=== PATIENT | female | born 1955 | race Caucasian/White ===

== ENCOUNTER → 2021-10-09 | Outpatient (CLI) | payer OTHER ==
[~2021-10-09] MED LIST: ATORVASTATIN CA20 MG PO; MELATONIN10 M3 PO; OSTEO BI-FLEX1 EAC2 PO; SUPER B MAXI C0.4 MG PO; VITAMIN C500 M2 PO
[2021-10-09 09:14] LABS: HEMATOCRIT 42.7 % (37.0-47.0); HEMOGLOBIN 14.2 gm/dL (12.0-15.0); MCH 31.4 pg (26.0-34.0); MCHC 33.3 g/dL (28.0-37.0); MCV 94.3 fL (80.0-100.0); RBC 4.53 mil/uL (4.20-5.00); RDW 12.8 % (10.5-14.5); WBC 5.4 thou/uL (4.0-11.0)
[2021-10-09 09:27] LABS: ALBUMIN 4.2 g/dL (3.4-5.0); CALCIUM 9.3 mg/dL (8.5-10.1); CREATININE 0.8 mg/dL (0.6-1.0); POTASSIUM 4.8 mmol/L (3.5-5.1)
[2021-10-09 09:28] LABS: INR 0.93; PROTIME 10.2 Seconds (10.5-12.1)
[2021-10-09 09:46] LABS: URINE BILIRUBIN NEGATIVE (Negative); URINE BLOOD NEGATIVE (Negative); URINE CLARITY CLEAR; URINE COLOR YELLOW; URINE GLUCOSE-RANDOM* NEGATIVE (Negative); URINE KETONES NEGATIVE (Negative); URINE LEUKOCYTES-REFLEX TRACE (Negative); URINE NITRITE-REFLEX NEGATIVE (Negative); URINE PROTEIN (DIPSTICK) NEGATIVE (Negative); URINE SPECIFIC GRAVITY 1.015 (1.005-1.035); URINE UROBILINOGEN 0.2 E.U./dl (0.2-1.0)
== END | disposition home or self-care (01) ==
LOC: PAC 08:23
PROVIDERS: ATTEND Orthopaedic Surgery
DX: Z01.818 Encounter for other preprocedural examination (principal); M17.11 Unilateral primary osteoarthritis, right knee

== ENCOUNTER → 2021-10-16 | Outpatient (CLI) | payer OTHER | LOC: LAB 11:58 | PROVIDERS: ATTEND Student in an Organized Health Care Education/Training Program | DX: Z01.812 Encounter for preprocedural laboratory examination (principal); Z20.822 Contact with and (suspected) exposure to COVID-19 ==

== ENCOUNTER 2021-10-21 06:05 | Observation (INO) | payer OTHER ==
[~2021-10-21] VITALS: Ht 165.1 cm; Wt 75.7 kg
[2021-10-21 06:58] VITALS: BP 134/68
[2021-10-21 16:36] LABS: APTT 23.2 Seconds (24.5-32.8); INR 0.99; PROTIME 10.8 Seconds (10.5-12.1)
[2021-10-21 19:39] VITALS: BP 129/73
[2021-10-21 20:20] VITALS: BP 129/73
[2021-10-22 00:35] VITALS: BP 118/58
--- NOTE | 2021-10-22 02:16 | NUR ---
PT IS POST OP DAY 1 FROM RIGHT TOTAL KNEE REPLACEMENT. PT IS A&OX4 AND ABLE TO COMMUNICATE WANTS AND NEEDS TO STAFF. SHE CONTINUES ON 4L/NC AND HAS MAINTAINED O2 SATS >95%. HEMOVAC AND ARELY IN PLACE TO RIGHT KNEE, WELL ICE PACK NEEDED. WILL CONINUE TO OBSERVE FOR CHANGES
[2021-10-22 05:36] VITALS: BP 108/46
[2021-10-22 05:51] LABS: ABSOLUTE NEUTROPHILS 8.3 thou/uL (1.4-8.2); BASOPHILS 0.1 % (0.0-2.0); HEMATOCRIT 31.2 % (37.0-47.0); HEMOGLOBIN 10.4 gm/dL (12.0-15.0); LYMPHOCYTES 10.7 % (24.0-44.0); MCH 31.5 pg (26.0-34.0); MCHC 33.2 g/dL (28.0-37.0); MCV 94.7 fL (80.0-100.0); MONOCYTES 8.4 % (1.0-8.0); PLATELET COUNT 165 thou/uL (150-400); POLYS 80.8 % (36.0-66.0); RBC 3.29 mil/uL (4.20-5.00); RDW 12.6 % (10.5-14.5); WBC 10.2 thou/uL (4.0-11.0)
[2021-10-22 06:09] LABS: CALCIUM 8.5 mg/dL (8.5-10.1); CREATININE 0.7 mg/dL (0.6-1.0); MAGNESIUM 2.2 mg/dL (1.8-2.4); POTASSIUM 4.4 mmol/L (3.5-5.1)
[2021-10-22 08:13] VITALS: BP 100/50
--- NOTE | 2021-10-22 08:59 | NUR ---
Assumed care of pt at 0700. Pt a&ox4. Dressing c/d/i. Serena controlled with prn pain medications. Up x1 assist. Patient waiting to work with physical therapy this am. Family at bedside. Call light within reach. Will continue to monitor.
--- NOTE | 2021-10-22 11:10 | NUR ---
S/P TKR. 66 years old, she lives with her franki. She independent. No dme, no hh or rehab in the past. Will need fww, provider plus will deliver fww prior to dc. Anticipate dc tomorrow per canelo. [facility] therapy in [facility] set up already.
--- NOTE | 2021-10-22 12:03 | O ---
[facility] [place] [address] OPERATIVE REPORT Name: ZAKI WHALEY Room #: 439-P [facility] M.RFelipe#: [id number] Admission: 10/21/21 Attend Phys: Cricket Solitario MD Discharge: Date of : 55 Report #: [id number] THIS REPORT FOR: cc: FAM - Family physician unknown FAM - Family physician unknown Cricket Solitario MD ~ DATE OF SERVICE: 10/21/2021 PREOPERATIVE DIAGNOSIS: Degenerative osteoarthritis, right knee. POSTOPERATIVE DIAGNOSIS: Degenerative osteoarthritis, right knee. PROCEDURE: Right total knee arthroplasty. SURGEON: Cricket Solitario MD INDICATIONS: This slender, fit and active 66-year-old female complains of progressive right knee pain. Clinical exam and x-rays confirm moderately severe degenerative arthritis involving all 3 compartments. We have discussed treatment options. Conservative measures have been ineffective. She has elected to go ahead with total knee replacement. DESCRIPTION OF PROCEDURE: The patient was taken to the operating room where she was placed under general anesthesia. A femoral nerve block was also applied. The right lower extremity was meticulously prepped and draped. A thigh tourniquet was applied and inflated to 300 mmHg. An anterior longitudinal skin incision was made and carried through the medial retinaculum. The patella was reflected laterally. Marked degenerative change in all 3 compartments was noted. The Castro and Nephew knee system was utilized. Intramedullary guides were used on both the femur and the tibia. The femur seemed to be best suited for a size 5 femoral component. The tibia was best suited for a size 4 tibial component. Sufficient bone was resected to correct the mild preoperative deformity and mild flexion contracture. A 9 mm polyethylene insert trial was tested. This resulted in full knee extension and flexion beyond 130 with satisfactory stability on varus and valgus stress. The patella surface was resected and a 32 mm patellar button fit nicely. Appropriate anchor holes were created. The trial implant was applied and the patella seemed to track nicely and appeared to be stable. The trial components were removed. The intramedullary canal was blocked with a bone block on both the femoral and tibial sides. The surfaces were thoroughly irrigated and dried. Methyl methacrylate cement was mixed and injected into the porous surface of the proximal tibia. The Castro and Nephew size 4 Maria Luisa II right nonporous tibial base plate was then applied. This was impacted into position and seated nicely and appeared to be secure. A 9 mm cruciate retaining Legion polyethylene component was then snapped into place. It seated nicely and [facility] [address] [place] [address] OPERATIVE REPORT Name: ZAKI WHALEY Room #: 439-P [facility] M.R.#: [id number] Admission: 10/21/21 Attend Phys: Cricket Solitario MD Discharge: Date of : 55 Report #: [id number] appeared to be secure. The Castro and Nephew size 5 right cruciate retaining Legion porous femoral component was then impacted on the distal femur. A small amount of cement was used at the anchor holes as the bone is somewhat osteopenic in that area. This component also seemed to seat nicely and appeared to be secure. A 32 mm Maria Luisa II patellar button was cemented into place using appropriate anchor holes. It was secured with a patellar clamp. All excess cement was removed around this margin. Once the cement had firmed, the clamp was removed and the knee was tested. Alignment, range of motion and stability appeared to be satisfactory. The patella tracked nicely and appeared to be stable. At this point, a single Hemovac was left in the wound exiting through a separate stab incision. The fascia was closed with multiple #1 Vicryl sutures. The tourniquet was deflated after a total tourniquet time of 59 minutes. Good hemostasis was noted. The subcutaneous tissues were closed with 0 Monocryl. The skin was closed with skin gregory. A sterile dressing was applied. The patient was awakened and returned to recovery room in good condition. <ELECTRONICALLY SIGNED> By: Cricket Solitario MD 10/22/21 1203 [id number] Cricket Solitario MD /gabriel
[2021-10-22 19:57] VITALS: BP 139/56
--- NOTE | 2021-10-23 03:35 | NUR ---
PT IS A/O X4 AND IS UP WITH ASSISTANCE USING WALKER AND GB. ROOM AIR. VSS AFEBRILE. C/O PAIN. PRN PAIN MEDICATION GIVEN DIRECTED. FALL PRECUATIONS IN PLACE, CALL LIGHT IS WITHIN REACH.
[2021-10-23 06:40] LABS: HEMATOCRIT 33.7 % (37.0-47.0); HEMOGLOBIN 11.7 gm/dL (12.0-15.0); MCH 32.8 pg (26.0-34.0); MCHC 34.8 g/dL (28.0-37.0); MCV 94.1 fL (80.0-100.0); RBC 3.58 mil/uL (4.20-5.00); RDW 12.8 % (10.5-14.5); WBC 10.2 thou/uL (4.0-11.0)
[2021-10-23 07:17] VITALS: BP 158/63
--- NOTE | 2021-10-23 11:46 | NUR ---
ASSUMED PT CARE THIS AM. PT IS ALERT & ORIENTED X4. PT HAS IV SITE ON L HAND SALINE LOCKED. PT IS UP WITH ASSIST X1 WITH GAITBELT AND WALKER TO THE BATHROOM. PT HAS ARELY DRESSING, BILATERAL RUMA WEST[place]ALL, CORIN. PT AT THE BEDSIDE. PT C/O OF PAIN AND GIVEN PAIN MEDICATION PER PT REQUEST. PT WAS WORKING WITH PHYSICAL THERAPY THIS AM. PT ON THE CHAIR WATCHING TV, CALL LIGHT WITHIN REACH. WILL CONTINUE TO MONITOR PT. FOLLOW POC.
[2021-10-23 13:09] VITALS: BP 158/63
[2021-10-23 16:47] VITALS: BP 143/67
[2021-10-23 20:46] VITALS: BP 118/52
--- NOTE | 2021-10-24 03:35 | NUR ---
PT IS A/O X4 AND IS UP WITH ASSISTANCE. ROOM AIR. VSS. AFEBRILE. C/O PAIN. PRN PAIN MEDICATION GIVEN DIRECTED. MEDICATIONS GIVEN WHOLE WITH WATER. DRSG TO KNEE IS C/D/I. ICEPACKS, TEDS, SCD'S, AND FALL PRECAUTIONS IN PLACE. PT CALLS OUT APPROPRIATELY FOR ASSISTANCE AND IS PROGRESSING TOWARDS PLAN OF CARE DC GOALS.
[2021-10-24 06:52] LABS: HEMATOCRIT 31.5 % (37.0-47.0); HEMOGLOBIN 10.6 gm/dL (12.0-15.0); MCH 31.9 pg (26.0-34.0); MCHC 33.6 g/dL (28.0-37.0); MCV 94.9 fL (80.0-100.0); RBC 3.32 mil/uL (4.20-5.00); RDW 12.9 % (10.5-14.5); WBC 8.1 thou/uL (4.0-11.0)
[2021-10-24 07:23] VITALS: BP 127/60
--- NOTE | 2021-10-24 09:00 | NUR ---
ASSUMED PT CARE THIS AM. PT HAS IV SITE ON L HAND SALINE LOCKED. PT IS UP WITH ASSIST X1 TO THE BATHROOM. PT AT THE BEDSIDE. PT C/O OF PAIN AND GIVEN PAIN MEDICATION PER PT REQUEST. PT TOLERATED DIET AND MEDICATION WELL. AWAITING PHYSICAL THERAPY THIS AM PRIOR DC. WILL CONTINUE TO MONITOR PT. FOLLOW POC.
--- NOTE | 2021-10-24 09:28 | D ---
[facility] [place] [address] [place] [address] DISCHARGE SUMMARY Name: ZAKI WHALEY Room #: 439-P [facility] M.RFelipe#: [id number] Admission: 10/21/21 Attend Phys: Cricket Solitario MD Discharge: Date of : 55 Report #: [id number] THIS REPORT FOR: cc: FAM - Family physician unknown FAM - Family physician unknown Cricket Solitario MD ~ DATE OF SERVICE: 10/24/2021 FINAL DIAGNOSIS: Degenerative arthritis, right knee. OPERATIVE PROCEDURE: Right total knee arthroplasty. HISTORY: This fit and active 66-year-old female complains of progressive right knee pain. Findings are consistent with degenerative arthritis. She has failed to see improvement with conservative management and has elected to go ahead with total knee replacement. HOSPITAL COURSE: The patient was admitted and taken to the operating room on 10/21, she underwent right total knee arthroplasty, which she tolerated well. Postoperatively, she was able to resume regular diet and begin physical therapy, but did have rather significant discomfort and required ongoing pain management. She had difficulty with steps and was slow to advance. She has made progress with therapy and today feels much better. Her vital signs have been stable. The dressing is dry. Her hemoglobin is stable. She seems safe and ready for discharge on 10/24. Her discharge medications include atorvastatin 20 mg daily, melatonin 10 mg daily, vitamin C 500 mg daily, glucosamine and chondroitin sulfate 1 tablet daily, Xarelto 10 mg daily, hydrocodone 10 mg every 4-6 hours as needed for pain. She will continue with activity at home and begin outpatient physical therapy. I have asked the patient to call me should there be any problems or questions. We will otherwise plan to see her back next week for followup in the following week for suture removal. <ELECTRONICALLY SIGNED> By: Cricket Solitario MD 10/24/21 0928 [id number] Cricket Solitario MD /nt
--- NOTE | 2021-10-24 09:42 | NUR ---
She up working with physical therapy, plan to dc home today. FWW delivered by provider plus already.
== END 2021-10-24 10:34 | disposition home or self-care (01) ==
LOC: OR → TBA 06:30 → 4S 07:48 → OR 07:48 → TBA 07:48 → 4S 07:48 → OR 08:34 → 4S 10:54 → OR 14:09 → 4S 10-24 10:34
PROVIDERS: Internal Medicine; Nurse Practitioner; ADMIT Orthopaedic Surgery; ATTEND Orthopaedic Surgery
DX: M17.11 Unilateral primary osteoarthritis, right knee (principal); E78.5 Hyperlipidemia, unspecified; Z86.718 Personal history of other venous thrombosis and embolism; Z79.01 Long term (current) use of anticoagulants; Z79.899 Other long term (current) drug therapy
CPT/HCPCS: 10100; 50010; 50101; 50415; 50954; 51130; 51225; 51412; 56525; 57095; 57103; 57104; 57180; 58449; 62110; 62900; 64041; 70005